=== PATIENT | female | born 1940 ===

== ENCOUNTER 2023-01-05 09:06 | Emergency (ER) | payer MEDICARE ==
[2023-01-05 09:57] LABS: #Basophils 0.1 thou/uL (0.0-0.2); #Neutrophils 14.5 thou/uL (1.40-6.50); %Basophils 0.4 % (0.0-1.0); %Eosinophils 0.1 % (0.0-10.0); %Lymphocytes 2.8 % (21.0-51.0); %Monocytes 6.4 % (0.0-10.0); %Neutrophils 89.9 % (42.0-75.0); Hematocrit 43.1 % (36.0-47.0); Hemoglobin 14.3 g/dL (12.0-16.0); Mean Corpuscular HGB CONC 33.2 g/dL (32.0-36.0); Mean Corpuscular Hemoglobin 29.5 pg (27.0-31.0); Mean Corpuscular Volume 88.9 fl (78.0-98.0); Mean Platelet Volume 10.8 fL (7.4-10.4); Platelet Count 306 10x3/uL (130-400); RBC Distribution Width 14.2 % (11.5-14.5); Red Blood Cell (RBC) Count 4.85 mill/uL (4.20-5.40); White Blood Cell (WBC) Count 16.2 10x3/uL (4.8-10.8)
[2023-01-05 10:16] LABS: ALT (SGPT) 132 U/L (8-55); AST (SGOT) 194 U/L (5-34); Albumin 3.7 g/dL (3.4-4.8); Alkaline Phosphatase 683 U/L (40-110); Anion Gap 12 mmol/L (10-20); BUN (Urea Nitrogen) 17 mg/dL (9.8-20.1); Bilirubin, Total 1.3 mg/dL (0.2-1.2); Calc. Creatinine Clearance 0 mL/min (70-130); Carbon Dioxide 24 mmol/L (23-31); Chloride 102 mmol/L (98-107); Estimated GFR 83; Globulin 3.2 g/dL (2.4-3.5); Glucose 144 mg/dL (83-110); Lipase 4 U/L (8-78); Protein, Total 6.9 g/dL (5.8-8.1); Sodium 134 mmol/L (136-145)
[2023-01-05 10:23] LABS: Bacteria/HPF None Seen HPF (None Seen); Bilirubin Negative (Negative); Blood, Urine Negative (Negative); CAUTI Indications for Culture Acute Hematuria; Clarity Clear (Clear); Glucose, Urine (Dipstick) Normal (Negative); Ketone, Urine 10 mg/dL (Negative); Leukocyte Negative Leu/uL (Negative); Nitrite Negative (Negative); Protein, Urine (Dipstick) Negative (Neg-Trace); RBC/HPF 0-3 HPF (0-3); Specific Gravity, Urine 1.019 (1.002-1.036); Squamous Epithelial 0-3 HPF (0-3); Urobilinogen Normal mg/dL (Less than 2); WBC/HPF 0-3 HPF (0-3)
[2023-01-05 10:24] LABS: Urine Culture Reflex No No
[2023-01-05] MEDS ORDERED: Iopamidol-370 76% 500 ML MDV (1 ML CHARGE) ONE (10:47)
[2023-01-05] MEDS ORDERED: Bisacodyl 5 MG TAB PO PRN (11:48)
[2023-01-05] MEDS ORDERED: Acetaminophen 325 MG TAB PO PRN (11:48)
[2023-01-05] MEDS ORDERED: Bisacodyl 10 MG SUPP PR PRN (11:48)
[2023-01-05] MEDS ORDERED: Ondansetron PF 4 MG/2 ML Vial IVP PRN (11:48)
[2023-01-05] MEDS ORDERED: Senokot S 8.6-50 MG TAB PO PRN (11:48)
[2023-01-05] MEDS ORDERED: Dextrose 5% in Water 1,000 ML IV PRN (11:50)
[2023-01-05] MEDS ORDERED: Dextrose 50% Abboject 50 ML SYRINGE SLOW IVP PRN (11:50)
[2023-01-05] MEDS ORDERED: HumaLOG 300 UNITS/3 ML VIAL SC PRN ×2 (11:50)
[2023-01-05] MEDS ORDERED: Glucagon 1 MG/ML KIT IM PRN (11:50)
[2023-01-05] MEDS ORDERED: Sodium Chloride 0.9% 1,000 ML IV SCH (12:00)
[2023-01-05] MEDS ORDERED: Cefepime 1 GM VIAL ONE (12:15)
[2023-01-05] MEDS ORDERED: Cefepime 2 GM in Sodium Chloride 0.9% 100 ML IVPB SCH (14:00)
[2023-01-05] MEDS ORDERED: metroNIDAZOLE 500 MG in Premix Bag 1 BAG IVPB SCH (14:00)
== END 2023-01-05 15:13 | disposition short-term general hospital (02) ==
LOC: ERS 09:06 → SUATTDRO 09:06 → ERS 15:13
PROVIDERS: ADMIT Family Medicine; ATTEND Family Medicine
DX: K83.09 Other cholangitis (principal); E11.9 Type 2 diabetes mellitus without complications; I10 Essential (primary) hypertension
CPT/HCPCS: 36415; 74177; 80053; 81001; 82977; 83690; 85025; 87040; 96365; J0692; Q9967